=== PATIENT | female | born 1935 | race Caucasian/White ===

== ENCOUNTER 2019-02-11 08:18 | Observation (INO) | payer MEDICARE, BC ==
--- NOTE | 2019-02-11 08:32 | CT ---
CT Brain WO Con: 02/11/2019 12:00 AM CLINICAL HISTORY: History of Alzheimer's. Aphasia, stroke. COMPARISON: None. FINDINGS: Hemorrhage: None. Ventricular system: Normal in size and morphology for the patient's age. Cerebral parenchyma: Microvascular ischemic disease Midline shift: None. Mass: No mass effect. Calvarium: Normal. Visualized Paranasal sinuses: Clear. IMPRESSION: No acute intracranial abnormalities. Notification of findings at 0827 hours.
[2019-02-11] MEDS ORDERED: Ondansetron PF 4 MG/2 ML Vial ONE (08:45)
[2019-02-11 09:00] LABS: Bilirubin Small (Negative); Blood, Urine Negative (Negative); Clarity CLEAR (Clear); Glucose, Urine (Dipstick) Negative (Negative); Leukocyte Trace (Negative); Nitrite Negative (Negative); Protein, Urine (Dipstick) 30 mg/dL (Neg-Trace); Specific Gravity, Urine 1.033 (1.002-1.036)
[2019-02-11 09:03] LABS: #Eosinphils 0.1 thou/uL (0.0-0.7); #Monocytes 0.4 thou/uL (0.11-0.59); #Neutrophils 8.1 thou/uL (1.40-6.50); %Basophils 0.3 % (0.0-1.0); %Eosinophils 0.7 % (0.0-10.0); %Lymphocytes 10.1 % (21.0-51.0); %Monocytes 4.2 % (0.0-10.0); %Neutrophils 84.6 % (42.0-75.0); Hemoglobin 13.4 g/dL (12.0-16.0); Mean Corpuscular HGB CONC 32.2 g/dL (32.0-36.0); Mean Corpuscular Hemoglobin 33.2 pg (27.0-31.0); Mean Platelet Volume 7.6 fL (7.4-10.4); Platelet Count 243 thou/uL (130-400); Red Blood Cell (RBC) Count 4.05 mill/uL (4.20-5.40); White Blood Cell (WBC) Count 9.6 thou/uL (4.8-10.8)
[2019-02-11 09:09] LABS: Pathc Cast-AUWi Flag 2.99 (0-2.49)
--- NOTE | 2019-02-11 09:10 | RAD ---
Chest AP view INDICATION: Achalasia; stroke alert COMPARISON: None FINDINGS: The lungs are clear. The heart size is normal. No pleural effusion or pneumothorax is evide nt. No acute osseous abnormality is noted. IMPRESSION: No acute cardiopulmonary abnormality.
[2019-02-11 09:26] LABS: Bacteria/HPF Rare-Few HPF (None Seen); RBC/HPF 0-3 HPF (0-3)
[2019-02-11 09:30] LABS: ALT (SGPT) 10 U/L (8-55); AST (SGOT) 18 U/L (5-34); Albumin 4.1 g/dL (3.4-4.8); Alkaline Phosphatase 124 U/L (40-150); Anion Gap 16 mmol/L (10-20); BUN (Urea Nitrogen) 25 mg/dL (9.8-20.1); Bilirubin, Total 0.3 mg/dL (0.2-1.2); Calc. Creatinine Clearance 0 mL/min (70-130); Calcium 9.1 mg/dL (7.8-10.44); Carbon Dioxide 20 mmol/L (23-31); Chloride 109 mmol/L (98-107); Estimated GFR-MDRD 49; Globulin 2.9 g/dL (2.4-3.5); Glucose 98 mg/dL (83-110); Lipase 41 U/L (8-78); Sodium 141 mmol/L (136-145)
--- NOTE | 2019-02-11 09:56 | CT ---
CT ABDOMEN AND PELVIS WITH IV CONTRAST 02/11/2019 CLINICAL INFORMATION: Abdominal pain. A aphasia. History of Alzheimer's disease. COMPARISON: None. Technique: Multiple contiguous axial CT images are obtained through the abdomen and pelvis with IV contrast. Cor onal reformatted images are provided. FINDINGS: Lower Chest: There is mild atelectasis in the lingula and right middle lobe. Vessels: Vascular calcifications are seen in the abdominal aorta and involving the iliac arteries. Abdomen: Portal vein:Patent Gallbladder: No calcified gallstones. Normal caliber wall. Liver: A small approximately 10 mm hypodense lesion is seen in the lateral segment left hepatic lobe which is difficult to further characterize. Pancreas: within normal limits. Spleen: within normal limits. Adrenals: within normal limits. Kidneys: There are findings likely related to bilateral parapelvic renal cysts as opposed to hydronep hrosis. However no contrast is seen in either renal collecting system. Ureters are normal in caliber. No renal lesion is appreciated. Peritoneum: No ascites or free air; no fluid collection. Bowel: A small hiatal hernia is present. There is colonic diverticulosis. There is appear to be thickening of the macias of the colon involving the splenic flexure and descending colon. While the: This region is incompletely distended, the macias do appear more thickened than typically expected for decompressed appearance of the bowel. No d efinitive pericolonic inflammatory changes are seen. However, colitis cannot be entirely excluded. Loops of small bowel are normal in caliber. Appendix is not visualized. No secondary signs are seen to suggest appendicitis. Mesentery and Retroperitoneum: No enlarged mesenteric or retroperitoneal lymph nodes. Abdominal Wall: within normal limits. Pelvis: Reproductive Organs: The uterus is not visualized likely due to prior hysterectomy. Pelvis within normal limits. Bladder: Urinary bladder is partially obscured due to artifact from right total hip prosthesis but is otherwise grossly normal in appearance. Bones: Degenerative changes are seen in the lumbar spine. Right total hip prosthesis is present. IMPRESSION: 1. Incomplete distention of the splenic flexure and descending colon; the colon in this region does d emonstrate what appears to be wall thickening. While no pericolonic inflammatory changes are seen, colitis cannot be entirely excluded. 2. Small hiatal hernia. 3. Findings likely attributable to bilateral parapelvic renal cysts. 4. Colonic diverticulosis. 5. Hysterectomy. 6. Difficult to characterize small hypodense lesion lateral segment left hepatic lobe.
[2019-02-11] MEDS ORDERED: metroNIDAZOLE 500 MG/100 ML BAG ONE (10:14)
[2019-02-11] MEDS ORDERED: Acetaminophen 325 MG TAB PO PRN (10:41)
--- NOTE | 2019-02-11 11:26 | HP ---
PRIMARY CARE PROVIDER: Dr. Nino in [place], [place]. CHIEF COMPLAINT: Abdominal pain. HISTORY OF PRESENT ILLNESS: Ms. Lyons is a pleasant 83-year-old lady, who was seen at [facility] on February 11, 2019. 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 She got out of the truck and sat down. She told her that her stomach hurts. She had a large bowel movement, which was loose. She started shaking and mumbling. On the way to the emergency room , she became unresponsive. She improved after coming to the emergency room. Her reports that she is now at her baseline. There is no history of any recent antibiotic use. She denies any chest pain or shortness of breath. She denies any abdominal pain. She denies any nausea, vomiting, or palpitations. REVIEW OF SYSTEMS: All other systems reviewed and found to be negative. PAST MEDICAL HISTORY: Alzheimer disease and hypothyroidism. PAST SURGICAL HISTORY: Left hip replacement, section x2, and appendectomy. ALLERGIES: NO KNOWN DRUG ALLERGIES. MEDICATIONS: 1. Citalopram. 2. Levothyroxine. 3. Mirtazapine and another medication for Alzheimer disease. Her medications need to be clarified. CODE STATUS: I discussed her code status with both the patient and her . She is full code. FAMILY HISTORY: No family history of coronary artery disease. SOCIAL HISTORY: No history of alcohol, tobacco or recreational drug use. PHYSICAL EXAMINATION: GENERAL: On examination, Ms. Lyons is awake and alert, not in acute distress. VITAL SIGNS: Blood pressure is 151/68, pulse 71, respiratory rate 19, and oxygen saturation 99% on room air. She is afebrile. EYES: No scleral icterus, no conjunctival pallor. ENT: Moist mucosal membranes. No oropharyngeal erythema or exudates. NECK: Supple, nontender, trachea is midline. RESPIRATORY: Accessory muscles of breathing are not active. Chest wall movements are symmetric bilaterally. LUNGS: Clear to auscultation without wheeze, rhonchi, or crepitations. CARDIOVASCULAR: S1 and S2 are heard, regular. Peripheral pulses palpable. No carotid bruit. No pericardial rub. ABDOMEN: Soft, nontender, bowel sounds heard, no hepatomegaly, no splenomegaly. NEUROLOGIC: Cranial nerves 2 through 12 intact, deep tendon reflexes 2+. MUSCULOSKELETAL: Power is 5/5 in all four extremities. SKIN: No rashes or subcutaneous nodules. LYMPHATIC: No cervical lymphadenopathy. PSYCHIATRIC: Normal mood, normal affect, the patient is oriented to person and place, not to time. LABORATORY DATA: Ms. Rodas labs and investigations were reviewed. Echocardiogram shows normal sinus rhythm, no ST changes to suggest an acute coronary syndrome. She did not have any pulmonary infiltrates on the chest x-ray. Noncontrast CT scan of the brain did not show any acute intracranial abnormality. CT scan of the abdomen and pelvis done with IV contrast showed incomplete distention of the splenic flexure and descending colon. The colon in this region demonstrated what appeared to be wall thickening. There were no pericolonic inflammatory changes, but colitis could not be excluded. She also has a small hiatal hernia, findings likely attributable to bilateral parapelvic renal cysts, colonic diverticulosis, hysterectomy, and a difficult to characterize small hypodense lesion in the lateral segment of left hepatic lobe. She has normal white count of 9600 , but neutrophilia with 84.6% neutrophils, elevated MCV of 103, but normal hemoglobin of 13.4, normal platelet count. Normal sodium, normal potassium, decreased carbon dioxide of 20, elevated blood urea nitrogen of 25, normal creatinine, normal liver profile, and normal lipase. Urinalysis is positive for trace leukocyte esterase and small amount of bilirubin. ASSESSMENT AND PLAN: Ms. Lyons is a pleasant 83-year-old lady, who was seen at [facility] on February 11, 2019. Her problem list includes: 1. Acute metabolic encephalopathy: Improved, most likely secondary to colitis. 2. Colitis: The patient will be admitted to the hospital and treated with empiric antibiotics. We will request stool studies. 3. Alzheimer disease: We will resume the patient's home medications once clarified. 4. Hypothyroidism: We will continue Synthroid once dose is clarified. We will check TSH level. Many thanks for allowing me to participate in your patient's care. Please feel free to contact me with any questions or concerns. LEVEL OF RISK: Moderate. LEVEL OF COMPLEXITY: Moderate. Job ID: [id number] [facility]
[2019-02-11 11:30] LABS: Lactic Acid 2.6 mmol/L (0.5-2.2)
[2019-02-11] MEDS ORDERED: cefTRIAXone\\ROCEPHIN 2 GM VIAL ONE (11:51)
[2019-02-11] MEDS: metroNIDAZOLE 500 MG in Premix Bag 1 BAG IVPB SCH ×2 (12:17→19:55)
[2019-02-11] MEDS: cefTRIAXone\\ROCEPHIN 1 GM in Sodium Chloride 0.9% 100 ML IVPB SCH (12:17)
[2019-02-11] MEDS: Sodium Chloride 0.9% 1,000 ML IV SCH (12:18)
[2019-02-11] MEDS ORDERED: ISOVUE-370 76%-LOCM 1 ML ONE (14:59)
[2019-02-11] MEDS ORDERED: Ondansetron PF 4 MG/2 ML Vial SLOW IVP PRN (18:36)
[2019-02-11 20:06] VITALS: BMI 28.2
[2019-02-12] MEDS: Sodium Chloride 0.9% 1,000 ML IV SCH ×2 (01:52→19:30)
[2019-02-12] MEDS: metroNIDAZOLE 500 MG in Premix Bag 1 BAG IVPB SCH ×3 (03:20→19:30)
[2019-02-12 09:09] LABS: #Eosinphils 0.1 thou/uL (0.0-0.7); #Lymphocytes 1.4 thou/uL (1.20-3.40); #Monocytes 0.5 thou/uL (0.11-0.59); #Neutrophils 5.5 thou/uL (1.40-6.50); %Basophils 0.4 % (0.0-1.0); %Lymphocytes 18.1 % (21.0-51.0); %Monocytes 6.1 % (0.0-10.0); %Neutrophils 73.5 % (42.0-75.0); Hemoglobin 11.8 g/dL (12.0-16.0); Mean Corpuscular HGB CONC 32.8 g/dL (32.0-36.0); Mean Corpuscular Hemoglobin 34.8 pg (27.0-31.0); Mean Platelet Volume 7.8 fL (7.4-10.4); Platelet Count 195 thou/uL (130-400); RBC Distribution Width 12.1 % (11.5-14.5); Red Blood Cell (RBC) Count 3.39 mill/uL (4.20-5.40); White Blood Cell (WBC) Count 7.5 thou/uL (4.8-10.8)
[2019-02-12 09:33] LABS: Anion Gap 10 mmol/L (10-20); BUN (Urea Nitrogen) 13 mg/dL (9.8-20.1); Calc. Creatinine Clearance 59 mL/min (70-130); Calcium 7.8 mg/dL (7.8-10.44); Carbon Dioxide 22 mmol/L (23-31); Chloride 112 mmol/L (98-107); Estimated GFR-MDRD 66; Glucose 83 mg/dL (83-110); Potassium 3.5 mmol/L (3.5-5.1); Sodium 140 mmol/L (136-145)
--- NOTE | 2019-02-12 11:32 | PDOC.PN ---
- Subjective Encounter Start Date: 02/12/19 Encounter Start Time: 11:27 Subjective: Pt is seen and examined for enterits/Colitis - Objective Resuscitation Status - Order Detail: 02/11/19 10:41 Resuscitation Status Routine Resuscitation Status: FULL: Full Resuscitation Discussed with: patient and MAR Reviewed: Yes Vital Signs & Weight: Vital Signs (12 hours) Temp Pulse Resp BP BP Pulse Ox 02/12/19 07:27 98.1 F 67 17 116/64 97 02/12/19 05:53 98.1 F 60 20 108/51 L 97 02/12/19 01:43 98.1 F 64 20 131/74 96 Weight Weight 154 lb 6.4 oz I&O: 02/11/19 02/12/19 02/13/19 06:59 06:59 06:59 Intake Total 1939 Balance 1939 Result Diagrams: 02/12/19 08:15 02/12/19 08:15 Phys Exam - Physical Examination HEENT: PERRLA, moist MMs, sclera anicteric Neck: no nodes, no JVD, supple Respiratory: no wheezing, no rales, no rhonchi Cardiovascular: RRR, no significant murmur, no rub Gastrointestinal: soft, no distention, positive bowel sounds Tenderness LLQ, no guarding /No rigidity Musculoskeletal: no edema Dx/Plan - Plan continue antibiotics, DVT proph w/SCDs 1) Enteritis/Colitis, IV Rocephin and Iv Flagyl -: 2) diarrhea work up -: 3) IV Fluids * . Review of Systems - Review of Systems Eyes: negative: Pain, Vision Change, Conjunctivae Inflammation, Eyelid Inflammation, Redness, Other ENT: negative: Ear Pain, Ear Discharge, Nose Pain, Nose Discharge, Nose Congestion, Mouth Pain, Mouth Swelling, Throat Pain, Throat Swelling, Other Respiratory: negative: Cough, Dry, Shortness of Breath, Hemoptysis, SOB with Excertion, Pleuritic Pain, Sputum, Wheezing Cardiovascular: negative: chest pain, palpitations, orthopnea, paroxysmal nocturnal dyspnea, edema, light headedness, other Gastrointestinal: Nausea, Vomiting, Abdominal Pain, Diarrhea Genitourinary: negative: Dysuria, Frequency, Incontinence, Hematuria, Retention , Other Musculoskeletal: negative: Neck Pain, Shoulder Pain, Arm Pain, Back Pain, Hand Pain, Leg Pain, Foot Pain, Other Skin: negative: Rash, Lesions, Elmer, Bruising, Other Neurological: negative: Weakness, Numbness, Incoordination, Change in Speech, Confusion, Seizures, Other - Medications/Allergies Allergies/Adverse Reactions: Allergies Allergy/AdvReac Type Severity Reaction Status Date / Time No Known Drug Allergies Allergy Verified 02/11/19 10:40 Medications: Current Medications Acetaminophen (Tylenol) 650 mg PO Q4H PRN PRN Reason: Headache/Fever/Mild Pain (1-3) Sodium Chloride (Normal Saline 0.9%) 1,000 mls @ 70 mls/hr IV .[id number] [facility] Last Admin: 02/12/19 01:52 Dose: 1,000 mls Ceftriaxone Sodium 1 gm/ (Sodium Chloride) 100 mls @ 200 mls/hr IVPB Q24HR [facility] Last Admin: 02/11/19 12:17 Dose: Not Given Metronidazole 500 mg/ Device 100 mls @ 100 mls/hr IVPB 0400,1200,2000 [facility] Last Admin: 02/12/19 03:20 Dose: 100 mls Ondansetron HCl (Zofran) 4 mg SLOW IVP Q6H PRN PRN Reason: Nausea Last Admin: 02/11/19 19:54 Dose: 4 mg
[2019-02-12] MEDS: cefTRIAXone\\ROCEPHIN 1 GM in Sodium Chloride 0.9% 100 ML IVPB SCH (12:34)
[2019-02-13] MEDS: metroNIDAZOLE 500 MG in Premix Bag 1 BAG IVPB SCH (03:16)
[2019-02-13] MEDS: Sodium Chloride 0.9% 1,000 ML IV SCH (05:20)
[2019-02-13] MEDS ORDERED: Levothyroxine Sodium 100 MCG TAB PO SCH (09:30)
[2019-02-13 10:22] VITALS: BP 115/60; TEMP 98.4
--- NOTE | 2019-02-13 18:13 | DIS ---
DATE OF ADMISSION: 02/11/2019 DATE OF DISCHARGE: 02/13/2019 DISCHARGE DIAGNOSES: 1. Gastroenteritis. 2. Acute metabolic encephalopathy. 3. History of hypothyroidism. 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 The patient had some abdominal discomfort, followed by a large liquid bowel movement and then some altered mental status. She was subsequently brought to the hospital, where she was found to have normal white count and chemistries only remarkable for lactic acid of 2.6, BUN of 25, creatinine of 1.08. Also, incidentally, her TSH was 94.3. The patient was placed in the hospital, given hydration, started on antibiotics with Rocephin and Flagyl. She had stool studies, which were negative. There was no E coli 0157. No Campylobacter or Shiga toxin identified and C diff was negative. The patient had several more loose stools, but then they stopped. She subsequently felt completely back to her baseline, was eating and ambulating with no difficulties, and felt comfortable for discharge to home. PHYSICAL EXAMINATION: VITAL SIGNS: Temperature is 98.1, pulse 64, respirations 20, O2 sats 96, BP is 131/74. GENERAL APPEARANCE: The patient is awake, alert, oriented, pleasant, and cooperative. She has normal mental status. HEART: Regular rate and rhythm. LUNGS: Clear. ABDOMEN: Soft, nontender, and nondistended with normal bowel sounds. EXTREMITIES: Warm and dry. No cyanosis, clubbing, or edema. DISPOSITION: The patient will be discharged to home. We discussed potential ongoing antibiotics. However, at this point, she has had no fever, no white count, and her workup is otherwise negative. Therefore, in our discussion, we agreed to hold off on any additional antibiotics. The patient has a 9-hour trip back home, but then should be able to get back on her usual home medications including her thyroid medications. We can give her a dose before she goes. Otherwise, the patient will be on a regular diet. Her activity level is ad henry and she should follow up with her PCP when she returns home. Job ID: [id number]
== END 2019-02-13 10:42 | disposition home or self-care (01) ==
LOC: ERS 08:18 → T4-B 10:15
PROVIDERS: ADMIT Internal Medicine; ATTEND Internal Medicine
DX: K52.9 Noninfective gastroenteritis and colitis, unspecified (principal); G93.41 Metabolic encephalopathy; G30.9 Alzheimer's disease, unspecified; F02.80 Dementia in other diseases classified elsewhere, unspecified severity, without behavioral disturbance, psychotic disturbance, mood disturbance, and anxiety; E03.9 Hypothyroidism, unspecified; Z79.899 Other long term (current) drug therapy
CPT/HCPCS: 51701; 70450; 71045; 74177; 80048; 82962; 83605; 83690; 85025; 87045; 87046; 87324; 87449 ×2; 87899 ×2; 93005; 94760; 96361 ×4; 96365; 96366 ×3; 96375; 96376; 97110; 97116; 97139; 99285; G0378 ×2; 36415; 36416; 80053; 81003; 81015; 84443; A4353; J0696; J2405; J3490; Q9966